=== PATIENT | male | born 1990 | race Hispanic/Latino ===

== ENCOUNTER 2017-07-12 21:42 | Emergency (ER) | payer OTHER ==
[2017-07-12 21:51] VITALS: BP 147/88; PULSE 63; RESP 20; TEMP 98; O2SAT 98
[2017-07-12] MEDS ORDERED: DiphenhydrAMINE 50 mg/ml Inj IVP STA (22:17)
--- NOTE | 2017-07-12 22:24 | ED PDOC ---
HPI: Allergic Reaction Chief Complaint (Provider): throat swelling History Per: Patient History/Exam Limitations: no limitations Onset/Duration Of Symptoms: Hrs (1.5) Current Symptoms Are (Timing): Gone Now Possible Cause: Food (misso soup) Home/EMS Treatment: Benadryl Additional Complaint(s): 27 yo ,m, PMhx shellfish allergy presents to ED c/o throat mild swelling started at 8:30 pm after he finished eating misso soup, associated with throat itching, tingling and chest tightness x 5 min. He denies SOB,wheezing, lip or tongue swelling,rash, fever, n,v,abd pain. Patient called to the restaurant where soup was prepared and he was told that the soup had added lobster sauce. Patient took a Benadryl at 9:15 PM. Patient on evaluation asymptomatic and not urticarial rash noted. <Evangelina Arias - Last Filed: 07/12/17 23:07> <Erica Collado - Last Filed: 07/13/17 00:08> Time Seen by Provider: 07/12/17 21:57 Chief Complaint (Nursing): Allergic Reaction Supervising Attending Note - Supervising Attending Note The Documented history was done by the: Physician Documentation Billing Clerk, Attending Physician The documented physical exam was done by the: Physician Documentation Billing Clerk, Attending Physician - Attestation: I have personally seen and examined this patient.: Yes I have fully participated in the care of the patient.: Yes I have reviewed all pertinent clinical information: Yes - Notes: Notes:: Lungs clear, no rash, no oral edema <Erica Collado - Last Filed: 07/13/17 00:08> Past Medical History Vital Signs: Last Vital Signs Temp 98 F 07/12/17 21:48 Pulse 63 07/12/17 21:48 Resp 20 07/12/17 21:48 BP 147/88 07/12/17 21:48 Pulse Ox 98 07/12/17 21:48 - Medical History PMH: No Chronic Diseases - Surgical History Surgical History: No Surg Hx - Family History Family History: States: No Known Family Hx - Social History Alcohol: None Drugs: Denies <Evangelina Arias - Last Filed: 07/12/17 23:07> Vital Signs: Last Vital Signs Temp 98 F 07/12/17 21:48 Pulse 63 07/12/17 21:48 Resp 20 07/12/17 21:48 BP 147/88 07/12/17 21:48 Pulse Ox 98 07/12/17 23:08 <Erica Collado - Last Filed: 07/13/17 00:08> - Home Medications Home Medications: Ambulatory Orders Medication Instructions Recorded Epinephrine HCl [Epipen 0.3 mg IM ONCE PRN #0.3 ml 07/12/17 Auto-Injector] - Allergies Allergies/Adverse Reactions: Allergies Allergy/AdvReac Type Severity Reaction Status Date / Time shellfish derived Allergy ANAPHYLAXIS Verified 07/12/17 21:48 Review of Systems ENT: Positive for: Throat Swelling <Evangelina Arias - Last Filed: 07/12/17 23:07> Physical Exam - Physical Exam Appears: Positive for: Well, No Acute Distress Head Exam: Positive for: ATRAUMATIC, NORMOCEPHALIC Eye Exam: Positive for: Normal appearance ENT: Positive for: Normal ENT Inspection, Pharynx Is (normal), TM Is/Are (normal ). Negative for: Pharyngeal Erythema, Tonsillar Exudate, Tonsillar Swelling Neck: Positive for: Normal, Supple Cardiovascular/Chest: Positive for: Regular Rate, Rhythm. Negative for: Murmur Respiratory: Positive for: Normal Breath Sounds. Negative for: Crackles, Rales , Rhonchi, Stridor, Wheezing Gastrointestinal/Abdominal: Positive for: Soft. Negative for: Tenderness, Distended, Guarding, Rebound Back: Positive for: Normal Inspection Neurologic/Psych: Positive for: Alert, Oriented. Negative for: Motor/Sensory Deficits <Evangelina Arias - Last Filed: 07/12/17 23:07> - ECG O2 Sat by Pulse Oximetry: 98 - Progress ED Course And Treament: 22:10 Impression Food Allergic reaction Plan Benadryl 25 mg PO Pepcid 40 mg PO <Evangelina Arias - Last Filed: 07/12/17 23:07> Disposition - Disposition Disposition Time: 23:00 <Evangelina Arias - Last Filed: 07/12/17 23:07> <Erica Collado - Last Filed: 07/13/17 00:08> - Clinical Impression Clinical Impression: Allergic reaction - Disposition Condition: GOOD Additional Instructions: CONTINUE BENADRYL AROUND THE CLOCK FOR THE NEXT 2 DAYS TAKE PEPCID DAILY FOR A WEEK FOLLOW UP WITH YOUR DOCTOR IN 1-2 DAYS FOR REEVALUATION Prescriptions: Epinephrine HCl [Epipen Auto-Injector] 0.3 mg IM ONCE PRN #0.3 ml PRN Reason: Anaphylaxis Instructions: Food Allergy Forms: [facility] ED School/Work Excuse
== END 2017-07-12 23:05 | disposition home or self-care (01) ==
LOC: H.ER 21:42
DX: T78.40XA Allergy, unspecified, initial encounter (principal); Z91.013 Allergy to seafood